=== PATIENT | male | born 1980 | race Caucasian/White ===

== ENCOUNTER 2024-12-03 19:16 | Emergency (ER) | payer SELFPAY ==
[~2024-12-03] VITALS: Ht 172.7 cm; Wt 100.0 kg
[2024-12-03 19:33] VITALS: BP 134/80; PULSE 94; RESP 17; TEMP 36.9; O2SAT 98
== END 2024-12-03 20:43 | disposition left against medical advice (07) ==
LOC: ER 20:13
DX: R51.9 Headache, unspecified (principal); Z53.21 Procedure and treatment not carried out due to patient leaving prior to being seen by health care provider
CPT/HCPCS: 99284